=== PATIENT | female | born 1980 | race African-American/Black ===

== ENCOUNTER 2021-04-05 08:28 | Outpatient (CLI) | payer BC ==
[2021-04-05] MEDS ORDERED: Iopamidol-370 76% 500 ML 1 ML ONE (09:54)
== END 2021-04-05 08:29 | disposition home or self-care (01) ==
LOC: BICCT 08:28
PROVIDERS: ATTEND Family Medicine
DX: R31.29 Other microscopic hematuria (principal); N28.89 Other specified disorders of kidney and ureter; R91.8 Other nonspecific abnormal finding of lung field
CPT/HCPCS: 74178